=== PATIENT | female | born 1970 | race Caucasian/White ===

== ENCOUNTER → 2016-10-28 | Outpatient (CLI) | payer OTHER ==
--- NOTE | 2016-10-28 17:37 | XCELERA REPORT ---
[address] [address] Lower Extremity Arterial Evaluation Name: EMILY HUBBARD Age: 45 yrs Gender: Female : 1970 Patient Status: Preadmit Patient Location: Study Date: 10/28/2016 03:03 PM Procedure: A color flow and duplex scan of the lower extremity arteries was performed on the left with velocity and waveform anaylsis. Reason For Study: PAIN IN LT FOOT Ordering Physician: MAKENNA JIN Performed By: Dante Michael Measurements and Calculations Right Left BUSINESS INTELLIGENCE REPORTING ANALYST PSV 156.3 cm/sec Prox PFA PSV -97.1 cm/sec Dist SFA PSV -117.5 cm/sec Prox Pop A PSV 74.6 cm/sec Dist RANJAN PSV 81.0 cm/sec Dist CONTACT LENS INSPECTOR PSV 82.1 cm/sec Donny Pedis PSV 70.5 cm/sec Left Side Arterial Evaluation Normal velocity and triphasic waveforms noted from the Common Femoral artery to the infrageniculate vessels. 0 % stenosis noted. Ankle Brachial index is 1.20. Interpretation Summary No hemodynamically significant lesions in the left lower extremity only, on duplex imaging, at rest. : ANNABEL, NO > Carson Rodriguez
== END ==
LOC: SP 15:00
DX: M79.672 Pain in left foot (principal)
CPT/HCPCS: 93926

== ENCOUNTER 2017-09-03 17:08 | Emergency (ER) | payer OTHER ==
[2017-09-03] MEDS ORDERED: DIPH/PERTUSS(ACELL)/TETANUS VAC/PF 0.5 ML SYR (>=10YO) IM ONE (17:31)
--- NOTE | 2017-09-03 17:53 | RADIOLOGY REPORT (SQ) ---
EXAM DESCRIPTION: FINGER LEFT COMPLETED DATE/TIME: 09/03/2017 5:43 pm REASON FOR STUDY: 3rd left finger lac COMPARISON: None. NUMBER OF VIEWS: Three views. TECHNIQUE: AP, lateral, and oblique images acquired of the left third finger. LIMITATIONS: None. FINDINGS: MINERALIZATION: Normal. BONES: On the lateral view, it appears that there may be slight avulsion of a fragment of bone from t he terminal tuft dorsally. SOFT TISSUES: No soft tissue swelling. No foreign body. OTHER: No other significant finding. IMPRESSION: There may have been avulsion of a small fragment of bone from the dorsal aspect of the t erminal tuft of the 3rd digit appear COMMENT: SITE OF TRAUMA/COMPLAINT MARKED/STAMP COMPLETED: YES. TECHNICAL DOCUMENTATION: JOB ID: [id number] [employer]- All Rights Reserved Reading location - IP/workstation name: [email or web address]
[2017-09-03] MEDS ORDERED: LIDOCAINE 1% INJ-PF (10 MG/ML) 30 ML SDV INJ ONE (18:09)
--- NOTE | 2017-09-03 18:41 | ER Document Report ---
ED Hand/Wrist Injury - General Chief Complaint: Finger Injury Stated Complaint: FINGER LACERATION Time Seen by Provider: 09/03/17 17:31 Mode of Arrival: Ambulatory Information source: Patient Notes: 46-year-old female presents with laceration to the dorsal aspect of the left third fingertip. She was cutting vegetables. Unknown last tetanus shot. She did bring in a piece of the tissue but it looks quite devitalized. TRAVEL OUTSIDE OF THE [place] IN LAST 30 DAYS: No - HPI Injury to: Middle finger Onset: Just prior to arrival Where: Home Quality of pain: Dull Severity: Moderate Pain Level: 2 Context: Other - Cutting vegetables - Related Data Allergies/Adverse Reactions: Penicillins Allergy (Mild, Verified 09/03/17 17:14) rash Past Medical History - General Information source: Patient - Social History Smoking Status: Never Smoker Cigarette use (# per day): No Chew tobacco use (# tins/day): No Frequency of alcohol use: None Drug Abuse: None Lives with: Family Family History: None Patient has suicidal ideation: No Patient has homicidal ideation: No - Medical History Medical History: Negative - Past Medical History Cardiac Medical History: Denies: Hx Heart Attack, Hx Hypertension Pulmonary Medical History: Denies: Hx Asthma Neurological Medical History: Denies: Hx Cerebrovascular Accident, Hx Seizures GI Medical History: Denies: Hx Hepatitis, Hx Hiatal Hernia, Hx Ulcer Infectious Medical History: Denies: Hx Hepatitis Past Surgical History: Denies: Hx Hysterectomy, Hx Mastectomy, Hx Open Heart Surgery, Hx Pacemaker Review of Systems - Review of Systems Constitutional: denies: Chills, Fever EENT: No symptoms reported Cardiovascular: No symptoms reported Respiratory: No symptoms reported Skin: See HPI Physical Exam - Vital signs Vitals: Temp Pulse BP Pulse Ox 98.0 F 91 136/89 H 99 09/03/17 17:11 09/03/17 17:11 09/03/17 17:11 09/03/17 17:11 Notes: Left hand; Good radial pulse. Sensory to the hand is good. His the distal portion of the third digit Patient has an avulsion injury to the left third fingertip. The avulsion injury involves the dorsal aspect of the fingertip involving one third of the nail and slight tissue from the tip. Sensation to the area laterally is good. Cap refill is good. There is no bone exposure. Course - Re-evaluation Re-evalutation: 09/03/17 18:38 Procedure note: Left third finger digital block performed. The whole hand was scrubbed with a surgical scrub brush and the area was cleaned and inspected closely. There is no exposed bone. Wound was dressed with Xeroform and a bulky dressing. - Vital Signs Vital signs: Temp Pulse Resp BP Pulse Ox 98.1 F 84 18 132/78 H 99 09/03/17 18:57 09/03/17 18:57 09/03/17 18:57 09/03/17 18:57 09/03/17 18:57 - Diagnostic Test Radiology reviewed: Image reviewed, Reports reviewed - X-ray shows a possible small avulsion injury to the bone on 1 image of the x-ray. The other 2 images look good. Discharge - Discharge Clinical Impression: Fingertip avulsion injury (third left fi Condition: Stable Disposition: HOME, SELF-CARE Instructions: Tetanus Immunization Given ([facility]) Additional Instructions: Recommendations: Keep the wound dressed for today and tomorrow. You can redress the wound on Thursday with Xeroform followed by a bulky wrap dressing. Call the orthopedic office tomorrow and let them know that you were seen with an avulsion injury to the distal finger and the ER doctor wanted you seen early next week by Dr. Hurt. Take the antibiotics as prescribed. Return to the emergency room for increasing pain, fever (temperature greater than 100.5), worsening discharge or any concerns or getting worse. Take the pain medicine as needed. The pain medicine you're taking prescribed as a narcotic. There are several important things you should know about this medicine: 1. This medicine contains Tylenol: It is important that you do not take Tylenol (or acetaminophen) while on this medicine. Tylenol is metabolized by the liver and taking too much Tylenol (acetaminophen) can lay to liver damage and even liver failure. 2. Taking narcotics for too long can lead to physical and mental dependence. Take this medicine only if really needed and in the lowest quantity to achieve pain relief. 3. Do not drink alcohol while on this medicine. Alcohol interacts with narcotics and the combination can be dangerous. 4. Do not drive or operate machinery while on this medicine. 5. Narcotics do cause constipation, so drink plenty of fluids and daily stool softeners. Prescriptions: Cephalexin Monohydrate [Keflex 500 mg Capsule] 500 mg PO Q6H 5 Days capsule Oxycodone HCl/Acetaminophen [Percocet 5-325 mg Tablet] 1 tab PO ASDIR PRN #15 tab PRN Reason: Referrals: ADIS HURT, [ACTIVE STAFF] - Follow up as needed (Is the number the hand surgeon: Call tomorrow and let them know the ER doctor wanted you seen early next week.)
[2017-09-03 18:58] VITALS: BP 132/78
== END 2017-09-03 18:58 | disposition home or self-care (01) ==
LOC: ER 17:08
PROC: 3E0T3BZ Introduction of Anesthetic Agent into Peripheral Nerves and Plexi, Percutaneous Approach (ICD-10-PCS; principal; 2017-09-03)
DX: S61.203A Unspecified open wound of left middle finger without damage to nail, initial encounter (principal); W45.8XXA Other foreign body or object entering through skin, initial encounter; Y93.G1 Activity, food preparation and clean up
CPT/HCPCS: 99283; 90471; 73140; 90715; 64455; J3490